=== PATIENT | female | born 1980 | race American Indian/Alaskan Native ===

== ENCOUNTER 2017-02-11 07:24 | Emergency (ER) | payer MEDICAID ==
[2017-02-11 08:18] LABS: Anion Gap 16 mmol/L; BUN/Creatinine Ratio 13.33; Basophils % (Auto) 0.5 % (0.0-1.8); Blood Urea Nitrogen 8 mg/dL (7-17); Calcium 9.2 mg/dL (8.4-10.2); Carbon Dioxide 24 mmol/L (22-30); Chloride 102.4 mmol/L (98-107); Eosinophils % (Auto) 3.8 % (0.0-4.3); Glucose 95 mg/dL (65-100); Hematocrit 36.4 % (30.3-42.9); Hemoglobin 11.8 gm/dl (10.1-14.3); Mean Corpuscular HGB Conc 32 % (30-34); Mean Corpuscular Hemoglobin 28 pg (28-32); Mean Corpuscular Volume 86 fl (79-97); Platelet Count 190 K/mm3 (140-440); Potassium 3.7 mmol/L (3.6-5.0); Red Blood Count 4.21 M/mm3 (3.65-5.03); Red Cell Distribution Width 13.2 % (13.2-15.2); Sodium 139 mmol/L (137-145); White Blood Count 4.2 K/mm3 (4.5-11.0)
[2017-02-11 08:35] LABS: Bilirubin,Urine NEG (Negative); Blood,Urine NEG (Negative); Ketones,Urine NEG (Negative); Leukocyte Esterase,Urine NEG (Negative); Mucus,Urine 2+ /HPF; Nitrite,Urine NEG (Negative); Protein,Urine <15 mg/dL mg/dL (Negative); Urobilinogen,Urine < 2.0 mg/dL (<2.0)
[2017-02-11] MEDS ORDERED: MORPHINE IV ONE (12:35)
[2017-02-11] MEDS ORDERED: NACL 0.9% 1000 ML 1,000 ML IV ONE (12:35)
[2017-02-11] MEDS ORDERED: ZOFRAN IV ONE (12:35)
[2017-02-11] MEDS ORDERED: TORADOL IV ONE (13:20)
[2017-02-11] MEDS ORDERED: ROCEPHIN IM ONE (13:20)
[2017-02-11] MEDS ORDERED: XYLOCAINE 1% MPF 5 mL INFILTRATI ONE (13:20)
--- NOTE | 2017-02-11 13:26 | Emergency Department Report ---
ED Abdominal Pain HPI - General Chief Complaint: Abdominal Pain Stated Complaint: SEVERE ABD PAIN Time Seen by Provider: 02/11/17 12:22 Source: patient, family Mode of arrival: Wheelchair Limitations: No Limitations - History of Present Illness Initial Comments: PT c/o abd pain that woke her up from her sleep this morning. PT states she had some light cramps to her lower abd for 3-4 days. PT states now the pain is 10/10 and worse with movement. PT states she has been dealing with breast tenderness, heartburn and nausea for weeks but she does not think those symptoms are related. Pt states lmp was 01-31-17 and wnl. last bm was this morning and "normal" MD Complaint: abdominal pain Onset/Timin -: Gradual, days(s) Location: suprapubic Radiation: none Severity: severe Severity scale (0 -10): 10 Quality: cramping, sharp Consistency: constant Improves With: nothing Worsens With: movement Associated Symptoms: nausea. denies: vomiting, dysuria Treatments Prior to Arrival: other (none ) - Related Data LMP Date: 01/31/17 Previous Rx's Medication Instructions Recorded Last Taken Type Acetaminophen/Codeine [Tylenol #3] 1 tab PO Q6H PRN #12 tab 02/11/17 Unknown Rx Doxycycline [Vibramycin CAP] 100 mg PO Q12HR #28 capsule 02/11/17 Unknown Rx Fluconazole [Diflucan TAB] 150 mg PO ONCE #2 tablet 02/11/17 Unknown Rx Ibuprofen [Motrin] 600 mg PO Q8H PRN #15 tablet 02/11/17 Unknown Rx Ondansetron [Zofran Odt] 4 mg PO Q8HR PRN #10 tab.rapdis 02/11/17 Unknown Rx metroNIDAZOLE [Flagyl] 500 mg PO Q12HR #14 tab 02/11/17 Unknown Rx Allergies Allergy/AdvReac Type Severity Reaction Status Date / Time No Known Allergies Allergy Verified 02/11/17 07:34 ED Review of Systems ROS: Stated complaint: SEVERE ABD PAIN Other details as noted in HPI Comment: All other systems reviewed and negative Constitutional: denies: chills, fever Cardiovascular: denies: chest pain Endocrine: other (breast tenderness ) Gastrointestinal: abdominal pain, nausea. denies: vomiting, diarrhea, constipation, hematemesis, melena, hematochezia Genitourinary: denies: dysuria, hematuria, discharge, abnormal menses, dyspareunia (last was a few days ago) Skin: denies: rash, lesions ED Past Medical Hx - Past Medical History Hx HIV: Yes - Surgical History Additional Surgical History: tubal ligation 3 . right knee surgery in 2002 - Social History Smoking Status: Current Every Day Smoker Substance Use Type: Alcohol - Medications Home Medications: Home Medications Medication Instructions Recorded Confirmed Last Taken Type Acetaminophen/Codeine [Tylenol #3] 1 tab PO Q6H PRN #12 tab 02/11/17 Unknown Rx Doxycycline [Vibramycin CAP] 100 mg PO Q12HR #28 capsule 02/11/17 Unknown Rx Fluconazole [Diflucan TAB] 150 mg PO ONCE #2 tablet 02/11/17 Unknown Rx Ibuprofen [Motrin] 600 mg PO Q8H PRN #15 tablet 02/11/17 Unknown Rx Ondansetron [Zofran Odt] 4 mg PO Q8HR PRN #10 tab.rapdis 02/11/17 Unknown Rx metroNIDAZOLE [Flagyl] 500 mg PO Q12HR #14 tab 02/11/17 Unknown Rx ED Physical Exam - General Limitations: No Limitations General appearance: alert, other (appears in pain, pt curled up in position. ) - Head Head exam: Present: atraumatic, normocephalic - Eye Eye exam: Present: normal appearance, EOMI. Absent: conjunctival injection - ENT ENT exam: Present: normal exam - Neck Neck exam: Present: normal inspection, full ROM - Respiratory Respiratory exam: Present: normal lung sounds bilaterally. Absent: respiratory distress, wheezes, chest wall tenderness - Cardiovascular Cardiovascular Exam: Present: regular rate, normal rhythm - GI/Abdominal GI/Abdominal exam: Present: soft, tenderness, guarding, hyperactive bowel sounds , other (RUQ, RLQ and LLQ TTP ). 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 Absent: lesions Speculum exam: Present: vaginal discharge, cervical discharge (white- yellow discharge from cervix. ), other (pt with enlarged inguinal lymph nodes graciela ). Absent: foreign body Bi-manual exam: Present: cervical motion tendernes, uterine tenderness - Extremities Exam Extremities exam: Present: normal inspection, full ROM. Absent: tenderness, pedal edema - Back Exam Back exam: Present: normal inspection, full ROM, tenderness, other (R lumbar back ). Absent: CVA tenderness (R), CVA tenderness (L) - Neurological Exam Neurological exam: Present: alert, oriented X3 - Psychiatric Psychiatric exam: Present: normal affect, normal mood - Skin Skin exam: Present: warm, dry ED Course Vital Signs 02/11/17 02/11/17 02/11/17 07:37 12:08 14:13 Temperature 98.0 F 97.9 F Pulse Rate 77 78 Respiratory 17 20 Rate Blood Pressure 114/78 Blood Pressure 106/69 [Right] O2 Sat by Pulse 100 98 100 Oximetry - Reevaluation(s) Reevaluation #1: 02/11/17 13:22 PT aware of abnormal PE findings. Reevaluation #2: 02/11/17 16:00 PT aware of lab results. PT aware of dx. PT aware that cultures have been done and that sexual partners may need testing/ treatment. PT rates pain 8/10. pt appears to be resting comfortably. Reevaluation #3: 02/11/17 16:11 PT states all antibiotics give her a yeast infection and pain pills maker her sick. will add diflucan and zofran to rx - Pulse Oximetry Interpretation Digit-Finger Initial Pulse Oximetry Readin Actions Taken: none ED Medical Decision Making - Lab Data Result diagrams: 02/11/17 07:49 02/11/17 07:49 Lab Results 02/11/17 02/11/17 02/11/17 Range/Units 07:49 07:49 07:49 WBC 4.2 L (4.5-11.0) K/mm3 RBC 4.21 (3.65-5.03) M/mm3 Hgb 11.8 (10.1-14.3) gm/dl Hct 36.4 (30.3-42.9) % MCV 86 (79-97) fl MCH 28 (28-32) pg MCHC 32 (30-34) % RDW 13.2 (13.2-15.2) % Plt Count 190 (140-440) K/mm3 Lymph % (Auto) 35.1 H (13.4-35.0) % Lanier % (Auto) 5.5 (0.0-7.3) % Eos % (Auto) 3.8 (0.0-4.3) % Baso % (Auto) 0.5 (0.0-1.8) % Lymph # 1.5 (1.2-5.4) K/mm3 Lanier # 0.2 (0.0-0.8) K/mm3 Eos # 0.2 (0.0-0.4) K/mm3 Baso # 0.0 (0.0-0.1) K/mm3 Seg Neutrophils % 55.1 (40.0-70.0) % Seg Neutrophils # 2.3 (1.8-7.7) K/mm3 Sodium 139 (137-145) mmol/L Potassium 3.7 (3.6-5.0) mmol/L Chloride 102.4 (98-107) mmol/L Carbon Dioxide 24 (22-30) mmol/L Anion Gap 16 mmol/L BUN 8 (7-17) mg/dL Creatinine 0.6 L (0.7-1.2) mg/dL Estimated GFR > 60 ml/min BUN/Creatinine Ratio 13.33 % Glucose 95 (65-100) mg/dL POC Glucose (70-105) Calcium 9.2 (8.4-10.2) mg/dL Total Bilirubin (0.1-1.2) mg/dL Direct Bilirubin (0-0.2) mg/dL Indirect Bilirubin mg/dL AST (5-40) units/L ALT (7-56) units/L Alkaline Phosphatase (35-129) units/L Total Protein (6.3-8.2) g/dL Albumin (3.9-5) g/dL Albumin/Globulin Ratio % Lipase (13-60) units/L HCG, Qual Negative (Negative) Urine Color (Yellow) Urine Turbidity (Clear) Urine pH (5.0-7.0) Ur Specific Monroe (1.003-1.030) Urine Protein (Negative) mg/dL Urine Glucose (UA) (Negative) mg/dL Urine Ketones (Negative) mg/dL Urine Blood (Negative) Urine Nitrite (Negative) Urine Bilirubin (Negative) Urine Urobilinogen (<2.0) mg/dL Ur Leukocyte Esterase (Negative) Urine WBC (Auto) (0.0-6.0) /HPF Urine RBC (Auto) (0.0-6.0) /HPF U Epithel Cells (Auto) (0-13.0) /HPF Urine Mucus /HPF 02/11/17 02/11/17 02/11/17 Range/Units 12:47 12:50 12:53 WBC (4.5-11.0) K/mm3 RBC (3.65-5.03) M/mm3 Hgb (10.1-14.3) gm/dl Hct (30.3-42.9) % MCV (79-97) fl MCH (28-32) pg MCHC (30-34) % RDW (13.2-15.2) % Plt Count (140-440) K/mm3 Lymph % (Auto) (13.4-35.0) % Lanier % (Auto) (0.0-7.3) % Eos % (Auto) (0.0-4.3) % Baso % (Auto) (0.0-1.8) % Lymph # (1.2-5.4) K/mm3 Lanier # (0.0-0.8) K/mm3 Eos # (0.0-0.4) K/mm3 Baso # (0.0-0.1) K/mm3 Seg Neutrophils % (40.0-70.0) % Seg Neutrophils # (1.8-7.7) K/mm3 Sodium (137-145) mmol/L Potassium (3.6-5.0) mmol/L Chloride (98-107) mmol/L Carbon Dioxide (22-30) mmol/L Anion Gap mmol/L BUN (7-17) mg/dL Creatinine (0.7-1.2) mg/dL Estimated GFR ml/min BUN/Creatinine Ratio % Glucose (65-100) mg/dL POC Glucose 106 H (70-105) Calcium (8.4-10.2) mg/dL Total Bilirubin 0.7 (0.1-1.2) mg/dL Direct Bilirubin < 0.2 (0-0.2) mg/dL Indirect Bilirubin 0.5 mg/dL AST 18 (5-40) units/L ALT 12 (7-56) units/L Alkaline Phosphatase 55 (35-129) units/L Total Protein 8.5 H (6.3-8.2) g/dL Albumin 4.0 (3.9-5) g/dL Albumin/Globulin Ratio 0.9 % Lipase 25 (13-60) units/L HCG, Qual (Negative) Urine Color (Yellow) Urine Turbidity (Clear) Urine pH (5.0-7.0) Ur Specific Monroe (1.003-1.030) Urine Protein (Negative) mg/dL Urine Glucose (UA) (Negative) mg/dL Urine Ketones (Negative) mg/dL Urine Blood (Negative) Urine Nitrite (Negative) Urine Bilirubin (Negative) Urine Urobilinogen (<2.0) mg/dL Ur Leukocyte Esterase (Negative) Urine WBC (Auto) (0.0-6.0) /HPF Urine RBC (Auto) (0.0-6.0) /HPF U Epithel Cells (Auto) (0-13.0) /HPF Urine Mucus /HPF 02/11/17 Range/Units Unknown WBC (4.5-11.0) K/mm3 RBC (3.65-5.03) M/mm3 Hgb (10.1-14.3) gm/dl Hct (30.3-42.9) % MCV (79-97) fl MCH (28-32) pg MCHC (30-34) % RDW (13.2-15.2) % Plt Count (140-440) K/mm3 Lymph % (Auto) (13.4-35.0) % Lanier % (Auto) (0.0-7.3) % Eos % (Auto) (0.0-4.3) % Baso % (Auto) (0.0-1.8) % Lymph # (1.2-5.4) K/mm3 Lanier # (0.0-0.8) K/mm3 Eos # (0.0-0.4) K/mm3 Baso # (0.0-0.1) K/mm3 Seg Neutrophils % (40.0-70.0) % Seg Neutrophils # (1.8-7.7) K/mm3 Sodium (137-145) mmol/L Potassium (3.6-5.0) mmol/L Chloride (98-107) mmol/L Carbon Dioxide (22-30) mmol/L Anion Gap mmol/L BUN (7-17) mg/dL Creatinine (0.7-1.2) mg/dL Estimated GFR ml/min BUN/Creatinine Ratio % Glucose (65-100) mg/dL POC Glucose (70-105) Calcium (8.4-10.2) mg/dL Total Bilirubin (0.1-1.2) mg/dL Direct Bilirubin (0-0.2) mg/dL Indirect Bilirubin mg/dL AST (5-40) units/L ALT (7-56) units/L Alkaline Phosphatase (35-129) units/L Total Protein (6.3-8.2) g/dL Albumin (3.9-5) g/dL Albumin/Globulin Ratio % Lipase (13-60) units/L HCG, Qual (Negative) Urine Color Yellow (Yellow) Urine Turbidity Clear (Clear) Urine pH 6.0 (5.0-7.0) Ur Specific [place] 1.023 (1.003-1.030) Urine Protein <15 mg/dl (Negative) mg/dL Urine Glucose (UA) Neg (Negative) mg/dL Urine Ketones Neg (Negative) mg/dL Urine Blood Neg (Negative) Urine Nitrite Neg (Negative) Urine Bilirubin Neg (Negative) Urine Urobilinogen < 2.0 (<2.0) mg/dL Ur Leukocyte Esterase Neg (Negative) Urine WBC (Auto) 1.0 (0.0-6.0) /HPF Urine RBC (Auto) 2.0 (0.0-6.0) /HPF U Epithel Cells (Auto) 1.0 (0-13.0) /HPF Urine Mucus 2+ /HPF - Radiology Data Radiology results: report reviewed Pelvic US- NAP - ovarian cyst PT states she has hx of ovarian cysts - Differential Diagnosis pid, uti, , ovarian cyst, TOA, ovarian torsion Critical Care Time: No Critical care attestation.: If time is entered above; I have spent that time in minutes in the direct care of this critically ill patient, excluding procedure time. ED Disposition Clinical Impression: PID (acute pelvic inflammatory disease), Bacterial vaginosis Disposition: DISCHARGED TO HOME OR SELFCARE Is pt being admited?: No Does the pt Need Aspirin: No Condition: Stable Instructions: Pelvic Inflammatory Disease (ED), Bacterial Vaginosis (ED), Abdominal Pain (ED) Additional Instructions: No ETOH with Flagyl No driving or ETOH after TYlenol #3 Take Doxy with food to prevent GI upset Avoid sun exposure while on medication Cultures have been done today, they typically take 3-5 days to result. IF your cultures are positive, someone from the hospital should call you If your cultures come back positive, your sexual partner will need testing/ treatment No sex for the next 2 weeks Return to ED if worsening or concerns Prescriptions: Acetaminophen/Codeine [Tylenol #3] 1 tab PO Q6H PRN #12 tab PRN Reason: Pain , Severe (7-10) Doxycycline [Vibramycin CAP] 100 mg PO Q12HR #28 capsule Fluconazole [Diflucan TAB] 150 mg PO ONCE #2 tablet Ibuprofen [Motrin] 600 mg PO Q8H PRN #15 tablet PRN Reason: Pain metroNIDAZOLE [Flagyl] 500 mg PO Q12HR #14 tab Ondansetron [Zofran Odt] 4 mg PO Q8HR PRN #10 tab.rapdis PRN Reason: Nausea Referrals: PRIMARY CARE, [Primary Care Provider] - 3-5 Days URI MCCURDY MD, PHD [Staff Physician] - 3-5 Days [facility] [Provider Group] - 3-5 Days Forms: STI Treatment and Prevention, Work/School Release Form(ED) Time of Disposition: 16:06
[2017-02-11 13:28] LABS: Alanine Aminotransferase 12 units/L (7-56); Albumin/Globulin Ratio 0.9 %; Alkaline Phosphatase 55 units/L (35-129); Bilirubin,Total 0.7 mg/dL (0.1-1.2); Total Protein 8.5 g/dL (6.3-8.2)
[2017-02-11 13:46] LABS: Bilirubin,Direct < 0.2 mg/dL (0-0.2); Bilirubin,Indirect 0.5 mg/dL
--- NOTE | 2017-02-11 15:46 | Ultrasound Report ---
ULTRASOUND PELVIS DUPLEX DOPPLER COMPLETE - TRANSABDOMINAL AND TRANSVAGINAL INDICATION: Pelvic pain and tenderness. Right-sided pain. COMPARISON: None similar. FINDINGS: Transabdominal and transvaginal pelvic sonography with Doppler performed in this patient with LMP of 01/31/2017, though in part limited due to bowel gas. An anteverted, approximately 8.8 x 4.4 x 5.9 cm uterus demonstrates bilaminar endometrial thickness of approximately 0.9 cm toward the fundus, endovaginal image 10. Minimal pelvic free fluid. Preserved bilateral ovarian blood flow. Unremarkable 3.3 x 2.5 x 2.2 cm right ovary. Left ovary is 3.1 x 1.9 x 2.5 cm with an approximately 2.1 x 1.6 cm slightly thick walled cyst with low-level intrinsic echoes/hemorrhagic as on image 32. CONCLUSION: No acute significant pelvic sonographic abnormality with few incidental findings, as above. Thank you for the opportunity to participate in this patient's care.
[2017-02-11] MEDS ORDERED: NORCO 5/325 PO ONE (15:59)
[2017-02-11 16:26] VITALS: BP 110/72
== END 2017-02-11 16:27 | disposition home or self-care (01) ==
LOC: ED 07:24
DX: N73.9 Female pelvic inflammatory disease, unspecified (principal); N76.0 Acute vaginitis; F17.200 Nicotine dependence, unspecified, uncomplicated; Z98.51 Tubal ligation status
CPT/HCPCS: 36415; 76830; 80048; 80074; 81001; 82962; 83690; 84703; 85025; 87210; 87591; 93975; 96361; 96372; 96374; 96375; 99284; J0696; J1885; J2270; J2405; J7030